=== PATIENT | female | born 1960 | race African-American/Black ===

== ENCOUNTER 2017-07-27 10:10 | Emergency (ER) | payer MEDICARE, MEDICAID ==
[~2017-07-27] VITALS: Ht 154.9 cm; Wt 61.0 kg
[~2017-07-27 10:10] MED LIST: ALBUTEROL; ATROVUD; B50; BUPR100T13; LOSA50TA3; OMEP20CA4; PROMETHAZINE WITH CODEINE; TYLENOL #3; VICODIN
[2017-07-27] MEDS ORDERED: KETOROLAC 60MG/2ML VIAL IM ONE (10:45)
[2017-07-27 10:50] VITALS: BP 120/81
== END 2017-07-27 11:10 | disposition home or self-care (01) ==
LOC: ER 10:26
DX: M25.512 Pain in left shoulder (principal); M54.2 Cervicalgia; M79.1 Myalgia; I10 Essential (primary) hypertension; J44.9 Chronic obstructive pulmonary disease, unspecified; F17.200 Nicotine dependence, unspecified, uncomplicated; Z98.890 Other specified postprocedural states
CPT/HCPCS: 96372; 99283; J1885